=== PATIENT | female | born 1970 | race Caucasian/White ===

== ENCOUNTER 2016-03-29 11:11 | Emergency (ER) | payer BC ==
[2016-03-29 12:47] VITALS: BP 126/71
--- NOTE | 2016-03-29 14:57 | UC ---
Back Pain HPI - HPI Summary HPI Summary: pt with 3 week h/o of low back pain. described as an 6/10 ache in lower right back. no radiation/numbness/weakness/tingling. no dysuria or other urinary changes. no bowel or bladder changes. pain is very annoying ansd getting worse. pt also admits to nausea and generally feeling "off." pos h/o kidney stones. - History of Current Complaint Chief Complaint: UCGeneralIllness Stated Complaint: STOMACH ACHE Time Seen by Provider: 03/29/16 14:22 Hx Obtained From: Patient Hx Last Menstrual Period: NONE ?: No Onset/Duration: Lasting Weeks - 3, Still Present Timing: Constant Severity Initially: Moderate Severity Currently: Moderate Pain Intensity: 6 Back Pain: Is Discrete @ - rt low back Character: Dull, Aching Aggravating: Movement - supine position Alleviating: Rest, Position Associated Signs And Symptoms: Positive: Flank Pain. Negative: Swelling, Redness, Bruising, Fever, Weakness, Numbness, Tingling, Abdominal Pain, Bladder Incontinence, Bowel Incontinence, Weight Loss - Allergies/Home Medications Allergies/Adverse Reactions: Allergies Allergy/AdvReac Type Severity Reaction Status Date / Time No Known Allergies Allergy Verified 03/29/16 12:47 PMH/Surg Hx/FS Hx/Imm Hx Previously Healthy: Yes Endocrine History Of: Denies: Diabetes Cardiovascular History Of: Denies: Cardiac Disorders Respiratory History Of: Reports: Asthma, Bronchitis, Pneumonia GI/ History Of: Reports: Kidney Stones - Surgical History Surgical History: Yes Surgery Procedure, Year, and Place: Kidney Stone Surgery 2008. Tubal Ligation. Novasure - Family History Known Family History: Positive: Cardiac Disease - father has pacemaker, Hypertension, Respiratory Disease - Social History Occupation: Employed Full-time Lives: With Family Alcohol Use: Rare Substance Use Type: None Smoking Status (MU): Never Smoked Tobacco Type: Cigarettes Amount Used/How Often: 1 PPD Length of Time of Smoking/Using Tobacco: 24 Years Have You Smoked in the Last Year: No When Did the Patient Quit Smoking/Using Tobacco: ~2011 - Immunization History Most Recent Influenza Vaccination: none Review of Systems Constitutional: Other - feels off, feels thirsty all the time Skin: Negative Eyes: Negative ENT: Negative Respiratory: Negative Cardiovascular: Negative Gastrointestinal: Other - nausea Genitourinary: Negative Motor: Negative Neurovascular: Negative Musculoskeletal: Myalgia - rt lbp Neurological: Negative Psychological: Negative All Other Systems Reviewed And Are Negative: Yes Physical Exam Triage Information Reviewed: Yes Appearance: Well-Appearing, No Pain Distress, Well-Nourished Vital Signs: Initial Vital Signs Temp 98.3 F 03/29/16 12:42 Pulse 65 03/29/16 12:42 Resp 18 03/29/16 12:42 BP 126/71 03/29/16 12:42 Pulse Ox 97 03/29/16 12:42 Vital Signs Reviewed: Yes Eyes: Positive: Conjunctiva Clear. Negative: Discharge ENT: Positive: Hearing grossly normal, Muffled/hoarse voice Neck exam: Normal Neck: Positive: Supple Respiratory: Positive: Lungs clear, Normal breath sounds, No respiratory distress, No accessory muscle use Cardiovascular: Positive: RRR, No Murmur Abdomen Description: Positive: Nontender, Soft. Negative: CVA Tenderness (R), CVA Tenderness (L), Distended, Guarding, McBurney's Point Tenderness Bowel Sounds: Positive: Present Musculoskeletal Exam: Normal Neurological: Positive: Alert, Muscle Tone Normal Psychological: Positive: Age Appropriate Behavior Skin Exam: Normal Back Pain Course/Dx - Course Course Of Treatment: ua pos for blood and leukacyte esterase, neg for glucose and nitrate - Differential Dx/Diagnosis Differential Diagnosis/HQI/PQRI: Arthritis, Renal Colic, Strain, Sprain Provider Diagnoses: UTI, HEMATURIA Discharge - Discharge Plan Condition: Stable Disposition: HOME Prescriptions: Ciprofloxacin TAB* [Cipro Tab*] 250 mg PO BID #10 tab Patient Education Materials: Urinary Tract Infection in Women (ED), Hematuria ( ED), Ciprofloxacin (By mouth) Referrals: Esequiel Emerson MD [Primary Care Provider] - (FOLLOW UP IN 2 DAYS IF NOT IMPROVING. OTHERWISE FOLLOW UP IN 2 WEEKS.) Additional Instructions: ANYTIME YOU TAKE AN ANTIBIOTIC IT IS VERY IMPORTANT TO REPLENISH YOUR BODY'S SUPPLY OF "GOOD" BACTERIA. YOU CAN DO THIS BY EATING HIGH QUALITY CULTURED FOODS SUCH LOCAL YOGURT, SOUR KRAUT AND NERI TRINIDAD. YOU CAN ALSO TAKE A PROBIOTIC SUPPLEMENT.
--- NOTE | 2016-03-29 15:45 | RAD ---
INDICATION: Back pain, dysuria, hematuria. Previous lithotripsy in 2009. COMPARISON: October 20, 2008 TECHNIQUE: Multidetector CT images were obtained from the lung bases to the ischial tuberosities. Evaluation of the viscera is limited without IV contrast. Multiplanar reformation. REPORT: Unremarkable visualized inferior thorax. Unremarkable liver. Largely decompressed gallbladder without gross CT abnormality. Unremarkable pancreas and spleen. Negative for CT abnormality of the upper GI, small bowel, infra cecal appendix, or colon. Negative for ascites, free air. Small fat-containing umbilical hernia without inflammatory change. Normal adrenal glands. 1.1 cm midpole calyceal stone of the RIGHT kidney increased from 0.8 cm previously. Adjacent 0.6 cm stone with interval increase. 0.7 cm lower pole calyceal stone of the RIGHT kidney with interval increase. Negative for RIGHT hydroureteronephrosis. Negative for LEFT side urolithiasis or hydronephrosis. While gross decompression limits assessment there is suggestion of diffuse mild mural thickening of the urinary bladder concerning for potential cystitis given the clinical context. Negative for thoracic lymphadenopathy. Normal diameter abdominal aorta and iliac arteries. Physiologic distention of the IVC. L5-S1 degenerative spondylosis with associated reactive endplate sclerosis. Facet joint osteoarthritis most prominent at L5-S1. No suspicious focal osseous lesions. IMPRESSION: 1. Enlargement of RIGHT calyceal stones compared with the October 20, 2008 CT. Negative for RIGHT ureteral stone or hydronephrosis at this time. 2. Suggestion of mild diffuse thickening of the urinary bladder wall which may reflect cystitis.
== END 2016-03-29 16:20 | disposition home or self-care (01) ==
LOC: UCCORT 11:11
DX: N39.0 Urinary tract infection, site not specified (principal); R31.9 Hematuria, unspecified; R11.0 Nausea; M54.5 Low back pain; J45.909 Unspecified asthma, uncomplicated; Z87.442 Personal history of urinary calculi; Z87.891 Personal history of nicotine dependence
CPT/HCPCS: 74176; 81025; 87086; 99212; G0463

== ENCOUNTER 2017-04-07 14:21 | Emergency (ER) | payer BC ==
[2017-04-07 14:56] VITALS: BP 131/71
--- NOTE | 2017-04-07 15:09 | UC ---
Throat Pain/Nasal Americo HPI - HPI Summary HPI Summary: pt is c/o a sore throat, chills and achy joints but denies fever, cough, muscle aches - History of Current Complaint Chief Complaint: UCRespiratory Stated Complaint: ST Time Seen by Provider: 04/07/17 14:52 Hx Obtained From: Patient Hx Last Menstrual Period: NONE ?: No Onset/Duration: Gradual Onset Severity: Severe Pain Intensity: 8 Associated Signs & Symptoms: Positive: Other - chills and joint aches - Epiglottits Risk Factors Epiglottis Risk Factors: Negative - Allergies/Home Medications Allergies/Adverse Reactions: Allergies Allergy/AdvReac Type Severity Reaction Status Date / Time No Known Allergies Allergy Verified 04/07/17 14:56 Home Medications: Home Medications Ibuprofen [Advil Liqui-Gels] 400 mg PO 04/07/17 [History] PMH/Surg Hx/FS Hx/Imm Hx Respiratory History: Asthma - Surgical History Surgical History: Yes Surgery Procedure, Year, and Place: Kidney Stone Surgery 2008. Tubal Ligation. Novasure - Family History Known Family History: Positive: Cardiac Disease - father has pacemaker, Hypertension, Respiratory Disease - Social History Alcohol Use: Occasionally Substance Use Type: None Smoking Status (MU): Never Smoked Tobacco Type: Cigarettes Amount Used/How Often: 1 PPD Length of Time of Smoking/Using Tobacco: 24 Years Have You Smoked in the Last Year: No When Did the Patient Quit Smoking/Using Tobacco: ~2011 - Immunization History Most Recent Influenza Vaccination: none Review of Systems Constitutional: Chills Skin: Negative Eyes: Negative ENT: Sore Throat Respiratory: Negative Cardiovascular: Negative Gastrointestinal: Negative Genitourinary: Negative Motor: Negative Neurovascular: Negative Musculoskeletal: Arthralgia Neurological: Negative Is Patient Immunocompromised?: No All Other Systems Reviewed And Are Negative: Yes Physical Exam Triage Information Reviewed: Yes Appearance: Well-Appearing Vital Signs: Initial Vital Signs Temp 99.2 F 04/07/17 14:52 Pulse 95 04/07/17 14:52 Resp 18 04/07/17 14:52 BP 131/71 04/07/17 14:52 Pulse Ox 97 04/07/17 14:52 Vital Signs Reviewed: Yes Eye Exam: Normal Eyes: Positive: Conjunctiva Clear ENT: Positive: Pharyngeal erythema, TMs normal. Negative: Nasal congestion, Nasal drainage, Trismus, Muffled voice, Hoarse voice, Uvula midline Neck: Positive: Supple, Nontender, Enlarged Nodes @ - peritonsil Respiratory: Positive: Lungs clear, Normal breath sounds, No respiratory distress Cardiovascular: Positive: RRR, No Murmur Abdomen Description: Positive: Nontender, No Organomegaly, Soft Bowel Sounds: Positive: Present Musculoskeletal: Positive: ROM Intact Neurological: Positive: Alert Psychological: Positive: Age Appropriate Behavior Skin Exam: Normal Diagnostics - Laboratory Diagnostic Studies Completed/Ordered: rapid strep=+ Throat Pain/Nasal Course/Dx - Course Course Of Treatment: + rapid strep, will tx - Differential Dx/Diagnosis Provider Diagnoses: strep throat Discharge - Discharge Plan Condition: Stable Disposition: HOME Prescriptions: Amoxicillin PO (*) [Amoxicillin 500 MG CAP*] 500 mg PO Q12H 10 Days #20 cap Patient Education Materials: Strep Throat (ED) Referrals: Esequiel Emerson MD [Medical Doctor] - 7 Days
== END 2017-04-07 15:23 | disposition home or self-care (01) ==
LOC: UCCORT 14:21
DX: J02.0 Streptococcal pharyngitis (principal)
CPT/HCPCS: 87651; 99212; G0463

== ENCOUNTER 2017-08-03 11:41 | Emergency (ER) | payer BC ==
[2017-08-03 12:23] VITALS: BP 139/79
--- NOTE | 2017-08-03 12:31 | UC ---
Back Pain HPI - HPI Summary HPI Summary: right flank pain and frequent urination with nausea for 2 days--no pain or burning with urination - History of Current Complaint Hx Obtained From: Patient Hx Last Menstrual Period: NONE ?: No Onset/Duration: Sudden Onset, Lasting Days - 2, Still Present Timing: Constant Pain Intensity: 7 Pain Scale Used: 0-10 Numeric Back Pain: Is Discrete @ - right flank Character: Aching, Throbbing Aggravating Factor(s): Nothing Alleviating Factor(s): Nothing Associated Signs And Symptoms: Positive: Negative <Sonja Valentine - Last Filed: 08/03/17 14:06> <Malathi Marie - Last Filed: 08/05/17 07:28> - History of Current Complaint Chief Complaint: UCBackPain Stated Complaint: BACK PAIN Time Seen by Provider: 08/03/17 12:20 - Allergies/Home Medications Allergies/Adverse Reactions: Allergies Allergy/AdvReac Type Severity Reaction Status Date / Time No Known Allergies Allergy Verified 08/03/17 12:21 PMH/Surg Hx/FS Hx/Imm Hx Previously Healthy: Yes GI/ History: Kidney Stones Psychological History: Depression - Surgical History Surgical History: Yes Surgery Procedure, Year, and Place: Kidney Stone Surgery 2008. Tubal Ligation. Novasure - Family History Known Family History: Positive: Cardiac Disease - father has pacemaker, Hypertension, Respiratory Disease - Social History Occupation: Employed Full-time Lives: With Family Alcohol Use: Occasionally Substance Use Type: None Smoking Status (MU): Former Smoker Type: Cigarettes Amount Used/How Often: 1 PPD Length of Time of Smoking/Using Tobacco: 24 Years Have You Smoked in the Last Year: No When Did the Patient Quit Smoking/Using Tobacco: ~2011 - Immunization History Most Recent Influenza Vaccination: none <Sonja Valentine - Last Filed: 08/03/17 14:06> Review of Systems Constitutional: Chills Skin: Negative Eyes: Negative ENT: Negative Respiratory: Negative Cardiovascular: Negative Gastrointestinal: Nausea Genitourinary: Urgency Motor: Negative Neurovascular: Negative Musculoskeletal: Negative Neurological: Negative Psychological: Negative Is Patient Immunocompromised?: No All Other Systems Reviewed And Are Negative: Yes <Sonja Valentine - Last Filed: 08/03/17 14:06> Physical Exam Triage Information Reviewed: Yes Appearance: Well-Appearing, Well-Nourished, Pain Distress Vital Signs: Initial Vital Signs Temp 98.8 F 08/03/17 12:17 Pulse 72 08/03/17 12:17 Resp 14 08/03/17 12:17 BP 139/79 08/03/17 12:17 Pulse Ox 98 08/03/17 12:17 Vital Signs Reviewed: Yes Eye Exam: Normal Eyes: Positive: Conjunctiva Clear ENT Exam: Normal ENT: Positive: Normal ENT inspection, Hearing grossly normal. Negative: Trismus , Muffled voice, Hoarse voice Dental Exam: Normal Neck exam: Normal Neck: Positive: Supple, Nontender Respiratory Exam: Normal Respiratory: Positive: Chest non-tender, Lungs clear, No accessory muscle use Cardiovascular Exam: Normal Cardiovascular: Positive: RRR, Pulses Normal, Brisk Capillary Refill Abdominal Exam: Normal Abdomen Description: Positive: Nontender, No Organomegaly, Soft, CVA Tenderness (R). Negative: CVA Tenderness (L), Distended, Guarding, Hernia @, Hepatomegaly , McBurney's Point Tenderness, Peritoneal Signs Bowel Sounds: Positive: Present Musculoskeletal Exam: Normal Musculoskeletal: Positive: Strength Intact, ROM Intact, No Edema Neurological Exam: Normal Neurological: Positive: Alert, Muscle Tone Normal Psychological Exam: Normal Skin Exam: Normal <Sonja Valentine - Last Filed: 08/03/17 14:06> Vital Signs: Initial Vital Signs Temp 98.8 F 08/03/17 12:17 Pulse 72 08/03/17 12:17 Resp 14 08/03/17 12:17 BP 139/79 08/03/17 12:17 Pulse Ox 98 08/03/17 12:17 <Malathi Marie - Last Filed: 08/05/17 07:28> Diagnostics - Radiology No standard instances Xray Interpretation: Positive (See Comments) - Patient Name: PADILLA ARZOLA Medical Record#: [id number] Ordering Physician: Sonja Valentine [employer] Acct.#: [id number] : 1970 Age: 46 Sex: F Location: [facility] Exam Date: 08/03/17 1241 ADM Status: REG ER Order Information: CT ABD/PEL W/O Accession Number: [id number] CPT: 26829 CLINICAL HISTORY: Hematuria and right flank pain. Relevant surgical history includes "kidney stone surgery" 2008 COMPARISON: Most recent comparison CT examination is dated March 29, 2016 TECHNIQUE: Noncontrast CT examination of the abdomen and pelvis from the lung bases through the initial tuberosities. FINDINGS: Unless otherwise specified comparisons below reference the March 29, 2016 CT examination. VISUALIZED LUNG BASES: The visualized lung bases are grossly clear. There is no pleural effusion. ABDOMEN AND PELVIS: Evaluation of the solid organs and vasculature is limited without intravenous contrast. The liver, spleen, pancreas and adrenal glands are grossly normal in appearance. The gallbladder is normal. There are 3 large conglomerations of stones in the right kidney that have not changed significantly since the previous CT examination. The small and large bowel are not distended.The patient's normal appendix is identified in the right lower quadrant. There is no gross retroperitoneal or mesenteric lymphadenopathy. Uterus is mildly enlarged and "bulky" appearing at the lower uterine segment measuring 10.1 x 3.4 cm in the sagittal plane and up to 6.5 cm transverse. The abdominal aorta and iliac arteries are normal in course and diameter. Degenerative changes include multilevel loss of intervertebral disc height involving the lower thoracic and lumbar spine. The most severe degenerative changes are at L5/S1 where there is endplate sclerosis and vacuum disc phenomenon. IMPRESSION: 1. There are at least 3 large calcifications in the right kidney unchanged since the March 29, 2016 CT examination. 2. There are no left-sided renal calculi or signs of obstructive uropathy bilaterally. 2. Incidentally noted is a mildly enlarged and somewhat "bulky" appearing uterus that is incompletely evaluated on a noncontrast CT examination. If the patient reports any gynecologic symptoms pelvic ultrasound can be obtained for better visualization of the uterus and ovaries. <Electronically signed by Karl Grimes MD in OV> [id number] Dictated By: Karl Grimes MD 1 of 2 Radiology Interpretation Completed By: ED Physician, Radiologist <Sonja Valentine - Last Filed: 08/03/17 14:06> Back Pain Course/Dx - Course Course Of Treatment: will culture urine, bactrim, ibuprofen follow with pcp to emergency department for worsening symptoms - Differential Dx/Diagnosis Provider Diagnoses: hematuria, UTI <Sonja Valentine - Last Filed: 08/03/17 14:06> Discharge - Sign-Out/Discharge Documenting (check all that apply): Discharge/Admit/Transfer - Billing Disposition and Condition Condition: STABLE Disposition: Home <oSnja Valentine - Last Filed: 08/03/17 14:06> - Billing Disposition and Condition Condition: STABLE Disposition: Home <Malathi Marie - Last Filed: 08/05/17 07:28> - Discharge Plan Condition: Stable Disposition: HOME Prescriptions: Sulfamethox/Trimethoprim DS* [Bactrim DS 800/160 TAB*] 1 tab PO BID #10 tab Patient Education Materials: Urinary Tract Infection in Women (ED), Hematuria ( ED) Referrals: Esequiel Emerson MD [Primary Care Provider] - 3 Days Additional Instructions: Please go to the emergency department for further care should pain fail to resolve or worsen in anyway Attestation Statement User Type: Provider - I was available for consult. This patient was seen by the [facility]. The patient was not presented to, seen by, or examined by me. -Thuan <Malathi Marie - Last Filed: 08/05/17 07:28>
--- NOTE | 2017-08-03 13:24 | RAD ---
CLINICAL HISTORY: Hematuria and right flank pain. Relevant surgical history includes "kidney stone surgery" 2008 COMPARISON: Most recent comparison CT examination is dated March 29, 2016 TECHNIQUE: Noncontrast CT examination of the abdomen and pelvis from the lung bases through the initial tuberosities. FINDINGS: Unless otherwise specified comparisons below reference the March 29, 2016 CT examination. VISUALIZED LUNG BASES: The visualized lung bases are grossly clear. There is no pleural effusion. ABDOMEN AND PELVIS: Evaluation of the solid organs and vasculature is limited without intravenous contrast. The liver, spleen, pancreas and adrenal glands are grossly normal in appearance. The gallbladder is normal. There are 3 large conglomerations of stones in the right kidney that have not changed significantly since the previous CT examination. The small and large bowel are not distended.The patient's normal appendix is identified in the right lower quadrant. There is no gross retroperitoneal or mesenteric lymphadenopathy. Uterus is mildly enlarged and "bulky" appearing at the lower uterine segment measuring 10.1 x 3.4 cm in the sagittal plane and up to 6.5 cm transverse. The abdominal aorta and iliac arteries are normal in course and diameter. Degenerative changes include multilevel loss of intervertebral disc height involving the lower thoracic and lumbar spine. The most severe degenerative changes are at L5/S1 where there is endplate sclerosis and vacuum disc phenomenon. IMPRESSION: 1. There are at least 3 large calcifications in the right kidney unchanged since the March 29, 2016 CT examination. 2. There are no left-sided renal calculi or signs of obstructive uropathy bilaterally. 2. Incidentally noted is a mildly enlarged and somewhat "bulky" appearing uterus that is incompletely evaluated on a noncontrast CT examination. If the patient reports any gynecologic symptoms pelvic ultrasound can be obtained for better visualization of the uterus and ovaries.
== END 2017-08-03 13:42 | disposition home or self-care (01) ==
LOC: UCCORT 11:41
DX: N39.0 Urinary tract infection, site not specified (principal); R31.9 Hematuria, unspecified; R11.0 Nausea; Z87.442 Personal history of urinary calculi; Z87.891 Personal history of nicotine dependence
CPT/HCPCS: 74176; 81003; 87086; 99212; G0463